=== PATIENT | male | born 1950 | race Caucasian/White ===

== ENCOUNTER 2018-07-05 04:30 | Emergency (ER) | payer MEDICARE, OTHER ==
[2018-07-05 05:05] LABS: ABSOLUTE EOSINOPHILS # (AUTO) 0.1 10^3/uL (0.0-0.6); ABSOLUTE LYMPHOCYTES (AUTO) 0.4 10^3/uL (0.5-4.7); ABSOLUTE MONOCYTES (AUTO) 0.2 10^3/uL (0.1-1.4); ABSOLUTE NEUT (AUTO) 1.8 10^3/uL (1.7-8.2); BASOPHILS % (AUTO) 0.7 % (0-2); EOSINOPHILS % (AUTO) 3.9 % (0-6); HEMATOCRIT 24.2 % (37.9-51.0); INTERNATIONAL RATION (INR) 1.23; LYMPHOCYTES % (AUTO) 15.3 % (13-45); MEAN CORPUSCULAR HEMOGLOBIN 30.1 pg (27.0-33.4); MEAN CORPUSCULAR HGB CONC 33.3 g/dL (32.0-36.0); MEAN CORPUSCULAR VOLUME 91 fl (80-97); MONOCYTES % (AUTO) 7.8 % (3-13); PROTHROMBIN TIME 16.1 SEC (11.4-15.4); RED BLOOD COUNT 2.67 10^6/uL (4.35-5.55); RED CELL DISTRIBUTION WIDTH 18.9 % (11.5-14.0); SEGMENTED NEUTROPHILS % (AUTO) 72.3 % (42-78); TOTAL CELLS COUNTED % (AUTO) 100 %; WHITE BLOOD COUNT 2.4 10^3/uL (4.0-10.5)
--- NOTE | 2018-07-05 05:10 | ER Document Report ---
ED Respiratory Problem <CAILIN BAZZI - Last Filed: 07/05/18 07:01> <ROHITH BATISTA - Last Filed: 07/05/18 18:47> <ELIZABETH THAKKAR - Last Filed: 07/05/18 20:37> - General Chief Complaint: Breathing Difficulty Stated Complaint: ANXIETY Time Seen by Provider: 07/05/18 04:39 Notes: Patient is a 68-year-old male presenting to the emergency department from [facility]. According to staff at [facility] has been short of breath for the last couple of days. Staff states the beginning of June the patient was placed on Levaquin for a positive chest x-ray right pneumonia. Staff then states patient was also placed on Levaquin again a 5-day course finishing it on 06/21/2018 after a repeat diagnosis of pneumonia nursing home through the month. Staff states patient got another chest x-ray on 07/04/2018 which showed right lung atelectasis versus pneumonia with a right pleural effusion, recommending a chest CT to rule out possible underlying tumor. Staff states they spoke with Dr. Deras who is the patient's provider at the nursing facility who recommends sending the patient to the emergency room. Staff states patient is on oxygen 2 L/min all the time, normal oxygen saturation is around 99%. In speaking with staff at [facility] they state patient is typically conscious alert and oriented x2. They state he is able to tell you his name and date of and that sometimes is situationally aware. Staff is denying any fever, vomiting, diarrhea, congestion. Staff does state patient has an intermittent cough that is pretty regular for the patient. They have noticed increased shortness of breath over the last 3 days. Past medical history: Anemia, chronic kidney disease, cognitive communication deficit, hypothyroid, GERD, ischemic cardiomyopathy, major depressive disorder, diabetes, CVA, hepatic failure, irritable bowel syndrome, posttraumatic stress disorder Medications: Iron, Synthroid, Prilosec, Zoloft, Lipitor, Flomax, rifaximin, melatonin, vitamin B12, Humalog, hydrocortisone, Levaquin, Zofran Allergies: None Patient is a dialysis patient who gets dialysis Monday, , Saturdays. ( CAILIN BAZZI) - Related Data Allergies/Adverse Reactions: No Known Allergies Allergy (Unverified 07/05/18 05:07) Past Medical History - General Information source: Patient - Social History Smoking Status: Unknown if Ever Smoked Frequency of alcohol use: None Drug Abuse: None Lives with: Custodial Family History: Reviewed & Not Pertinent <CAILIN BAZZI - Last Filed: 07/05/18 07:01> Review of Systems - Review of Systems Constitutional: See HPI EENT: See HPI Cardiovascular: See HPI Respiratory: See HPI Gastrointestinal: See HPI Genitourinary: No symptoms reported Male Genitourinary: No symptoms reported Musculoskeletal: No symptoms reported Skin: No symptoms reported Hematologic/Lymphatic: See HPI Neurological/Psychological: See HPI <CAILIN BAZZI - Last Filed: 07/05/18 07:01> - Vital signs Vitals: Resp Pulse Ox 17 100 07/05/18 04:38 07/05/18 04:38 Course - Laboratory Result Diagrams: 07/05/18 04:41 07/05/18 04:41 <CAILIN BAZZI - Last Filed: 07/05/18 07:01> - Laboratory Result Diagrams: 07/05/18 04:41 07/05/18 04:41 <ROHITH BATISTA - Last Filed: 07/05/18 18:47> - Laboratory Result Diagrams: 07/05/18 04:41 07/05/18 04:41 <ELIZABETH THAKKAR - Last Filed: 07/05/18 20:37> - Re-evaluation Re-evalutation: Called nursing visiting housekeeper to see if our facility can do dialysis. Nursing supervisor denture department states we do not have dialysis on today. Hemoglobin of 8. Guaiac stool negative. Discussed recent hemoglobin of 6.8 documented in paperwork from [facility] that was transferred with the patient to the emergency room with Dr. Caldwell. He does not recommend transfusing the patient at this time. Chest x-ray shows near complete opacification of the right hemithorax. States he was slammed on work shows a large right pleural effusion with association atelectasis and slight leftward shift of mediastinal structures. Also shows a slight left pleural effusion. Due to this needing to be drained via IR and patient needing dialysis unfortunately they cannot stay at this facility. Discussed this case with Dr. Dirk Welsh at [facility]. He accepts the patient to a [facility] telemetry bed. 07/05/18 06:57 Currently patient's heart rate is 68, oxygen saturation is 100% on 2 L of oxygen , respiratory rate of 16, blood pressure 106/70. Patient reports and care transferred to Rohith Batista PA-C. (CAILIN BAZZI) 07/05/18 10:27 This is Daniel Batista physician property assistant I have taken over care of patient while he is awaiting transport to [facility] for dialysis and for draining of a pleural effusion on the right side of his lung. I was informed the patient has a large effusion on his right lung and that his long as he is resting comfortably he is not short of breath but he does not attempt to talk because it makes him more short of breath. He has been resting comfortably since I have taken over his care he has some breath sounds bilaterally but the right side may be referred. Is much more dull on the right side. During patient's stay here his daughter called and talked to the nurse taking care of him and she is requesting that he be transferred to [facility] in [facility]. I will attempt to make contact and see if they are a facility that can can handle both dialysis and the can handle a thoracentesis as well. If they are able to facilitate the patient had no problem and transferring him there which ever is quicker. I placed a call to [facility] in [facility] [place] and this is at [facility] I was put through to the hospitalist service and I left a message for a person by the name of Saturnino. Waited a couple hours and had not received a return call yet so I decided to call. I was put through or a physician Dr. Nguyen picked up the phone and we discussed patient's case I explained to him why we are talking about wanting him transferred to their facility and that it was the daughter's request. I explained patient's condition and because he has the right sided effusion Dr. Whiteside felt the patient needed to have a thoracentesis prior to being transferred. He did not refused transfer at this time he was afraid the patient might decompensate in route since it is a 2-hour ride. I have explained as well that we feel it necessary for patient to have dialysis and thoracentesis at the same facility to complete continuity of care. At this time he is stable. I thank you for his help in understanding and we would be back in touch with him if we were going to do the thoracentesis. At this point I did contact [facility] to find out our patient status on the bed and was informed that they had one ready for him. At this point we are going to go ahead and transfer patient to [facility] where he can have the thoracentesis and dialysis done. He is stable and I will reevaluate before transport. Nursing is notified the daughter of the reason patient is going to [facility] at this time and once he is stabilized there after the dialysis he can be transferred to that facility that she requested. Someplace around 3:00 the nurse in charge of patient received a call from patient's daughter she was not happy and the nurse asked me to feel the call. I did and let her explained to me how she felt patient's care should be handled and how she does not understand [facility] from his home and now they can getting back into [facility]. I explained to her that for continuity of care and for patient safety we did not want to have his chest thoracentesis done here because it is the long process and that you have to drain it slowly so we do not lose pressures. I tried to explain to her that with that and his dialysis that it was a fine- line of getting fluid off of him all the way around. That he needed to have the fluid pulled from the chest sent out and evaluated and find a cause for what was going on inside him. Also he needed to be in a facility that had specialist like pulmonology in case they found a mass in the lungs after the drain the fluid. This is something we could not do here. She got to the point where she was at work and upset with me that she asked me to contact her brother Adria and he was coming down here to get his father in his car and take him back home. I contacted his son Adria at area code [phone] we actually had a very good conversation though it was a very long one in me explaining again how we became involved with the patient he showed up on our doorstep last night I was worked up and found to have a large pleural effusion on his right side of the chest that is displacing some of his vessels and that we needed to shift him to a facility that can handle dialysis and thoracentesis. I explained to him I have no idea how the [facility] works and why his father ended up here and that I would be just as upset as he would be if my father were in the same position. I have explained to him that every hospital in the local areas are full and that [facility] offered as soon as they had a bed to take the patient. I explained to him that once he has had his chest tapped in the find out what is causing it and his dialysis they could talk to the hospitalist they are about discharging him to his facility at home. As I stated earlier Dr. Nguyen at [facility] did not refused to accept the patient but he gave a certain guidelines we had to meet for him to take the patient to the hospital and I did could not meet those. Could not mediate in patient safety concerns. Patient's son understood where it was coming from I told him that the transport should be here within 10-15 minutes and it soon as he was packaged up I would call him to let him know. It actually took about 25 minutes and I contacted him by this phone number and he was thankful and he was going to leave her he was that so he could be there in approximately an hour when his father got there. I have given him our number here the [phone] and my name in case he has any concerns or problems he can contact me here in the next 3-4 days. He was understanding and is only wanting good care for his father. Something for which we will walk. 07/05/18 14:15 07/05/18 18:47 (ROHITH BATISTA) - Vital Signs Vital signs: Temp Pulse Resp BP Pulse Ox 97.7 F 73 15 103/65 100 07/05/18 16:01 07/05/18 04:50 07/05/18 16:01 07/05/18 16:01 07/05/18 16:01 - Laboratory Laboratory results interpreted by me: 07/05/18 07/05/18 07/05/18 04:41 04:41 04:41 WBC 2.4 L RBC 2.67 L Hgb 8.0 L Hct 24.2 L RDW 18.9 H Plt Count 62 L Absolute Lymphocytes 0.4 L PT 16.1 H Potassium 3.5 L Carbon Dioxide 32 H BUN 30 H Creatinine 3.13 H Est GFR ( Amer) 24 L Est GFR (Non-Af Amer) 20 L Glucose 122 H Total Bilirubin 2.4 H Direct Bilirubin 0.8 H Total Protein 5.9 L Albumin 3.1 L Critical Care Note <CAILIN BAZZI - Last Filed: 07/05/18 07:01> <ROHITH BATISTA - Last Filed: 07/05/18 18:47> - Critical Care Note Total time excluding time spent on procedures (mins): 80 <ELIZABETH THAKKAR - Last Filed: 07/05/18 20:37> - Critical Care Note Comments: Critical care time 80 minutes exclusive from separate billable procedures, in a patient with massive pulmonary effusion, in a patient on dialysis, that required continuous monitoring, and high potential for clinical deterioration from a pulmonary and cardiovascular standpoint, and multiple conversations with [facility] consultants and institutions to facilitate a safe transfer for the patient so that he could receive care for both his effusion and to continue treatment for his ESRD. Extensive conversations with family members as well as documented. (ELIZABETH THAKKAR) Discharge <CAILIN BAZZI - Last Filed: 07/05/18 07:01> <ROHITH BATISTA - Last Filed: 07/05/18 18:47> <ELIZABETH THAKKAR - Last Filed: 07/05/18 20:37> - Discharge Clinical Impression: Pleural effusion, End stage renal disease Condition: Stable Disposition: [facility] Referrals: LESLIE DERAS MD [Primary Care Provider] - Follow up as needed
--- NOTE | 2018-07-05 05:13 | RADIOLOGY REPORT (SQ) ---
EXAM DESCRIPTION: XR CHEST 1 VIEW COMPLETED DATE/TME: 07/05/2018 04:39 CLINICAL HISTORY: 68 years, Male, SOB COMPARISON: None. NUMBER OF VIEWS: 1 TECHNIQUE: Frontal view the chest LIMITATIONS: None. FINDINGS: Large right pleural effusion with near complete opacification of the right hemithorax. Right heart border is obscured. Atheromatous change thoracic aorta. A component of atelectasis is also suspected in the right hemithorax. IMPRESSION: Near complete opacification of the right hemithorax likely due to a combination of effusion/atelectasis. copyright 2010 [employer]- All Rights Reserved
[2018-07-05 05:16] LABS: PLATELET COUNT 62 10^3/uL (150-450)
[2018-07-05 05:20] LABS: ALANINE AMINOTRANSFERASE 25 U/L (21-72); ALBUMIN 3.1 g/dL (3.5-5.0); ALKALINE PHOSPHATASE 114 U/L (38-126); ANION GAP 10 (5-19); ASPARTATE AMINO TRANSFERASE 33 U/L (17-59); BILIRUBIN,DIRECT 0.8 mg/dL (0.0-0.4); BILIRUBIN,TOTAL 2.4 mg/dL (0.2-1.3); BLOOD UREA NITROGEN 30 mg/dL (7-20); CALCIUM 8.7 mg/dL (8.4-10.2); CARBON DIOXIDE 32 mmol/L (22-30); CHLORIDE 100 mmol/L (98-107); CREATINE KINASE 55 U/L (55-170); GLUCOSE 122 mg/dL (75-110); POTASSIUM 3.5 mmol/L (3.6-5.0); SODIUM 141.7 mmol/L (137-145); TOTAL PROTEIN 5.9 g/dL (6.3-8.2)
[2018-07-05 05:31] LABS: CREATINE KINASE MB 1.55 ng/mL (<4.55)
[2018-07-05 05:35] LABS: TROPONIN I 0.228 ng/mL
--- NOTE | 2018-07-05 06:00 | RADIOLOGY REPORT (SQ) ---
EXAM DESCRIPTION: CT ABDOMEN chest, and pelvis WITHOUT IV CONTRAST COMPLETED DATE/TME: 07/05/2018 00:00 CLINICAL HISTORY: 68 years, Male, RIGHT EFFUSION COMPARISON: None. TECHNIQUE: [id number] Images stored on PACS. All CT scanners at this facility use dose modulation, iterative reconstruction, and/or weight based dosing when appropriate to reduce radiation dose to as low as reasonably achievable (ALARA). [facility]: Dose Right [facility]: CareDose [facility]: Dose Right [facility]: Teradose 4D [facility]: [employer] LIMITATIONS: None. FINDINGS: CT chest: The visualized thyroid gland is unremarkable. Slight leftward shift of the mediastinal structures secondary to a combination of a large right pleural effusion and associated atelectasis. There is also a small to moderate-sized left pleural effusion. Cardiomegaly. Mild atheromatous change thoracic aorta. Osseous structures of the thorax are grossly intact. No discrete pneumothorax. CT abdomen/pelvis: Osseous structures are grossly intact. Diffuse anasarca. The visualized portions of the liver are unremarkable. The spleen is enlarged measuring 20 cm in craniocaudad diameter. Atrophic appearance of the kidneys bilaterally. Pancreas is grossly unremarkable. The gallbladder appears contracted. Moderate motion artifact. Small amount of ascites. Severe atheromatous change. No free air. Questionable wall thickening of the colon may reflect nonspecific colitis, however difficult to assess due to nondistention. IMPRESSION: Large right pleural effusion with associated atelectasis and slight leftward shift of the mediastinal structures. There is also a small to moderate left pleural effusion. Cardiomegaly. Diffuse anasarca. Small volume of ascites. Splenomegaly at 20 cm. Severe bilateral renal atrophy. Severe atheromatous changes. Subjective diffuse wall thickening of the colon could reflect nonspecific colitis. TECHNICAL DOCUMENTATION: Quality ID # [id number]: Final reports with documentation of one or more dose reduction techniques (e.g., Automated exposure control, adjustment of the mA and/or kV according to patient size, use of iterative reconstruction technique) copyright 2011 [employer]- All Rights Reserved
--- NOTE | 2018-07-05 07:42 | EKG REPORT ---
SEVERITY:- BORDERLINE ECG - SINUS RHYTHM CONSIDER ANTERIOR INFARCT NONSPECIFIC ST-T CHANGES , DIFFUSE. : Confirmed by: North Rivera MD 05-Jul-2018 07:41:23
--- NOTE | 2018-07-05 08:11 | RADIOLOGY REPORT (SQ) ---
EXAM DESCRIPTION: CT CHEST WITHOUT COMPLETE DATE/TIME: 07/05/2018 5:40 am REASON FOR STUDY: right effusion FINDINGS: Please see combined report under CT abdomen and pelvis. IMPRESSION: Please see combined report under CT abdomen and pelvis. Reading location - IP/workstation name: [email or web address]
[2018-07-05 16:11] VITALS: BP 103/65
== END 2018-07-05 16:15 | disposition short-term general hospital (02) ==
LOC: ER 04:30
DX: J90 Pleural effusion, not elsewhere classified (principal); N18.6 End stage renal disease; D63.1 Anemia in chronic kidney disease; R06.02 Shortness of breath; E11.9 Type 2 diabetes mellitus without complications; Z79.899 Other long term (current) drug therapy; Z86.73 Personal history of transient ischemic attack (TIA), and cerebral infarction without residual deficits
CPT/HCPCS: 36415; 71045; 71250; 76380; 80053; 82272; 82550; 82553; 83605; 84484; 85025; 85610; 93005; 93010; 99291; 99292